=== PATIENT | male | born 1985 | race Caucasian/White ===

== ENCOUNTER 2018-01-13 19:25 | Emergency (ER) | payer OTHER ==
[2018-01-13] MEDS ORDERED: Lidocaine 1% with EPINEPHrine 1:100,000 20 ML MDV INFILT ONE (19:26)
[2018-01-13 19:49] VITALS: BP 137/93
[2018-01-13] MEDS ORDERED: Cephalexin 500 MG Cap PO ONE (20:05)
[2018-01-13] MEDS ORDERED: Acetaminophen/HYDROcodone 325-5 MG Tab PO SCH (20:45)
--- NOTE | 2018-01-17 16:03 | ER ---
DATE SEEN: 01/13/2018 HISTORY OF PRESENT ILLNESS: This 32-year-old , nonsmoking, young man was using a pry-bar and was working on a trailer, and he had his left dominant hand index finger crushed, and he has a laceration on the dorsal ulnar side of the mid-phalange, 1.5 cm, and also PIP volar ulnar surface of the index finger. PROCEDURE: The wound was cleansed vigorously with surgical scrub dress, injected with lidocaine with epi 1%, and then the superficial epidermis was excised and wound was explored. There was no evidence for involvement of the tendon. The wound was closed with interrupted 4-0 Ethilon on the dorsum and also interrupted 3 stitches of 4-0 Ethilon on the volar surface (palmar). The patient tolerated the procedure well. DIAGNOSIS: Index and long finger laceration, crush injury. PLAN: The patient will be dismissed with 8 tablets of Vicodin and also Keflex 500 mg 20 tablets one t.i.d. Follow up with his doctor in 7 to 10 days if any signs of erythema or redness earlier, otherwise sutures to stay in for at least 2 weeks. He is also advised to elevate his arm above his heart when he begins to have throbbing, pain, and discomfort, to diminish and calm the pressure and discomfort that is accentuated by the arm below his heart. /[id number] TERE/SILVA GEORGES
--- NOTE | 2018-02-13 11:22 | ER ---
DATE SEEN: 01/13/2018 ADDENDUM: PHYSICAL EXAMINATION: GENERAL: The patient is in [id number] distress. He is alert, physically active, muscular fellow. HEENT: PERRLA intact. Pharynx without abnormality. LUNGS: Clear without rales. HEART: S1, S2. No murmur. ABDOMEN: Soft. No hepatosplenomegaly. DERMIS: As noted. Also, the index finger laceration left hand; dorsal ulnar side of mid phalanges 1.5 cm, also a small laceration in the PIP ulnar side surface, index finger. Wounds were treated as noted in the previous dictation. /[id number] TERE/SILVA
== END 2018-01-13 20:49 | disposition home or self-care (01) ==
LOC: FB.ED 19:25
DX: S67.191A Crushing injury of left index finger, initial encounter (principal); S61.211A Laceration without foreign body of left index finger without damage to nail, initial encounter; W23.1XXA Caught, crushed, jammed, or pinched between stationary objects, initial encounter; Y99.0 Civilian activity done for income or pay
CPT/HCPCS: 12001; 99282; A9270; 12002